=== PATIENT | female | born 1995 | race African-American/Black ===

== ENCOUNTER 2017-05-14 13:50 | Emergency (ER) | payer OTHER ==
[~2017-05-14] VITALS: Ht 152.4 cm; Wt 95.3 kg
[2017-05-14 16:08] LABS: PLATELET COUNT 265 K/uL (152-353)
[2017-05-14 16:15] LABS: POTASSIUM 3.5 mmol/L (3.6-5.2); SODIUM 137 mmol/L (136-145)
== END 2017-05-14 17:26 | disposition home or self-care (01) ==
LOC: ED 13:50
PROVIDERS: Specialist
DX: R10.84 Generalized abdominal pain (principal)
CPT/HCPCS: 80048; 80307; 81000; 81025; 85027; 99283